=== PATIENT | male | born 1950 | race Caucasian/White ===

== ENCOUNTER 2017-12-01 13:05 | Inpatient (IN) | payer MEDICARE ==
[2017-12-01 13:27] LABS: #Basophils 0.1 thou/uL (0.0-0.2); #Eosinphils 0.4 thou/uL (0.0-0.7); #Lymphocytes 2.2 thou/uL (1.20-3.40); #Monocytes 0.9 thou/uL (0.11-0.59); %Basophils 0.6 % (0.0-1.0); %Eosinophils 3.2 % (0.0-10.0); %Lymphocytes 17.4 % (21.0-51.0); %Monocytes 7.4 % (0.0-10.0); %Neutrophils 71.4 % (42.0-75.0); Hemoglobin 6.8 g/dL (14.0-18.0); Mean Corpuscular HGB CONC 28.8 g/dL (32.0-36.0); Mean Corpuscular Hemoglobin 16.4 pg (27.0-31.0); Mean Corpuscular Volume 57.1 fl (80.0-94.0); Mean Platelet Volume 7.5 fL (7.4-10.4); Platelet Count 532 thou/uL (130-400); Red Blood Cell (RBC) Count 4.15 mill/uL (4.70-6.10); White Blood Cell (WBC) Count 12.6 thou/uL (4.8-10.8)
[2017-12-01 13:45] LABS: Reflex for Review?? YES
[2017-12-01 13:48] LABS: Anisocytosis MODERATE=16-30 cells (100X) (0-5/hpf); Elliptocytes SLIGHT = 2-5 cells (100X) (0-1/hpf); Hypochromia MODERATE=16-30 cells (100X) (0-5/hpf); MDiff Complete? YES; Microcytosis MODERATE=15-30 cells (100X) (0-5/hpf); Ovalocytes SLIGHT = 2-5 cells (100X) (0-1/hpf); PLT Morphology Comment Appears Increased; Poikilocytosis SLIGHT = 6-15 cells (100X) (0-5/hpf); Polychromasia SLIGHT = 2-3 cells (100X) (0-2/hpf); Schistocytes SLIGHT = 2-5 cells (100X) (0-1/hpf); Spherocytes SLIGHT = 1-5 cells (100X) (None Seen); Target Cells SLIGHT = 2-5 cells (100X) (0-1/hpf)
[2017-12-01 13:57] LABS: PTT 28.8 SEC (22.9-36.1); Prothrombin Time 13.2 SEC (12.0-14.7)
--- NOTE | 2017-12-01 14:24 | CT ---
CT BRAIN WITHOUT CONTRAST: Date: 12/01/17 HISTORY: Right-sided blindness, weakness, and dizziness. FINDINGS: No evidence of acute infarct, hemorrhage, midline shift, or abnormal extra-axial fluid collections ar e seen. The ventricular size is appropriate and the basilar cisterns are patent. The bony calvarium i s intact. The visualized paranasal sinuses and mastoid air cells are well aerated. IMPRESSION: No CT evidence of acute intracranial process. POS: [facility]
[2017-12-01 14:29] LABS: Albumin 4.4 g/dL (3.4-4.8)
[2017-12-01 14:30] LABS: Chloride 104 mmol/L (98-107); Potassium 3.9 mmol/L (3.5-5.1); Sodium 136 mmol/L (136-145)
[2017-12-01 14:31] LABS: Calcium 9.1 mg/dL (7.8-10.44); Glucose 85 mg/dL (80-115)
[2017-12-01 14:32] LABS: Globulin 3.8 g/dL (2.4-3.5); Protein, Total 8.2 g/dL (5.8-8.1)
[2017-12-01 14:33] LABS: Anion Gap 12 mmol/L (10-20); Bilirubin, Total 0.6 mg/dL (0.2-1.2); Carbon Dioxide 24 mmol/L (23-31)
[2017-12-01 14:34] LABS: Alkaline Phosphatase 81 U/L (40-150)
[2017-12-01 14:35] LABS: Calc. Creatinine Clearance 0 mL/min (70-130); Estimated GFR-MDRD 46
[2017-12-01 14:36] LABS: BUN (Urea Nitrogen) 26 mg/dL (8.4-25.7)
[2017-12-01 14:37] LABS: ALT (SGPT) Less than 7 U/L (8-55); AST (SGOT) 17 U/L (5-34)
[2017-12-01] MEDS ORDERED: Acetaminophen 325 MG TAB PO PRN (14:40)
[2017-12-01] MEDS ORDERED: PROPOFOL 200 MG/20 ML VIAL ONE (15:45)
[2017-12-01 16:35] VITALS: BMI 28.5
[2017-12-01] MEDS ORDERED: FLU VACC TS2017-18 (>65YR) 0.5 ML SYRINGE IM ONE (17:00)
[2017-12-01] MEDS: Dextrose 5 %-0.45 % NaCl 1,000 ML IV SCH (17:34)
--- NOTE | 2017-12-01 18:07 | HP ---
PRIMARY CARE PHYSICIAN: [facility]. PRESENTING COMPLAINT: Dyspnea on exertion. HISTORY OF PRESENT ILLNESS: Mr. 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 He complains of dyspnea on exertion over the past 3 weeks with weakness and occasional dizziness. He denies abdominal pain, melena, hematochezia. He has no history of fevers or chills. He has no abdominal, urinary, or GI symptoms. At the emerg ency room, his vital signs were stable. Physical examination was unremarkable. Lab revealed hemoglo bin of 6.8 with possible hemoccult blood. He also had a brain CT scan which showed no CT evidence of acute intracranial process. He was then admitted for possible GI bleed. PAST MEDICAL HISTORY: As stated in the HPI. PAST SURGICAL HISTORY: None. FAMILY AND SOCIAL HISTORY: Reviewed, not pertinent. ALLERGIES: None. REVIEW OF SYSTEMS: Ten-point review of systems was done, all negative except as stated in the HPI. SOCIAL HISTORY: Does not drink alcohol or use illicit drugs. Reports that he dips occasionally. PHYSICAL EXAMINATION: VITAL SIGNS: Temperature 98.3 degree Fahrenheit, pulse 69, respiratory rate 16, oxygen saturation 98 % on room air, blood pressure 136/72. GENERAL: Not in acute distress, sitting comfortably in bed. HEENT: Normocephalic, atraumatic. Not pale, anicteric. Moist oral mucosa. NECK: Supple. No JVD. Full range of movement. RESPIRATORY: Vesicular breath sounds bilaterally. No wheezes or rales. CARDIOVASCULAR: S1 and S2 only. No murmurs, rubs, or gallops. ABDOMEN: Soft, not tender, not distended. Bowel sounds positive. No hepatosplenomegaly. MUSCULOSKELETAL: Full range of movement with no skeletal abnormalities. NEUROLOGIC: Alert and well oriented to time, place, and person. No focal deficit. SKIN: Warm, dry, well-perfused. No rashes or lesions. LABORATORY DATA: Pertinent labs, hemoglobin 6.8, WBC 12.6, platelets 532. BUN 26, creatinine 1.52. ASSESSMENT AND PLAN: 1. Symptomatic anemia. Concern for possible underlying malignancy as patient also has positive hemo ccult blood. He has been made n.p.o., started on IV fluids. He will be transfused with PRBC to hemo globin goal of greater than 7. We will also trend his hemoglobin every 6 hours and obtain GI consult s. 2. Possible gastrointestinal bleed. Hemoccult blood was positive. Plan as above. He has also been started on IV Protonix 40 mg q.12 hours. 3. Acute kidney injury likely from poor p.o. intake. This should resolve with hydration. Monitor r enal function in addition for his symptomatic anemia, we will get an anemia workup.
[2017-12-01 18:38] LABS: Hemoglobin 7.7 g/dL (14.0-18.0)
[2017-12-01] MEDS ORDERED: GoLYTELY 4,000 ml Bottle PO SCH (21:00)
[2017-12-01] MEDS ORDERED: Pantoprazole 40 MG VIAL IVP SCH (21:00)
[2017-12-02] MEDS: Dextrose 5 %-0.45 % NaCl 1,000 ML IV SCH ×4 (00:45→22:23)
[2017-12-02 01:04] LABS: Hemoglobin 7.3 g/dL (14.0-18.0)
--- NOTE | 2017-12-02 01:06 | CON ---
DATE OF CONSULTATION: 12/01/2017 REASON FOR CONSULTATION: Anemia. CONSULTING PHYSICIAN: Dr. Melody Rucker. HISTORY OF PRESENT ILLNESS: Patient is a 67-year-old male with past medical history of CVA with righ t-vision deficit presenting with significant anemia. Patient states that he was in his usual state o f health until approximately 2-3 weeks ago, and he began to notice more increased shortness of breath especially with decreased physical capabilities or endurance before he had to stop and rest. This w as also accompanied with mild dizziness that was very self-limiting and usually resolving within [place] after onset. He was subsequently seen by his PCP who mag routine labs, who noted to have a sign ificant anemia on his CBC. At which point, the PCP contacted the patient for evaluation within the E R and urgent evaluation of the significant anemia. Currently, he states that he is doing well withou t any problems or complaints, currently denies any nausea, vomiting, fevers, chills, abdominal pain, hematochezia, hematemesis, melena, or overt bleeding of any kind. REVIEW OF SYSTEMS: A 10-category review of systems was obtained with all responses negative except f or the pertinent positives as listed in the HPI. PAST MEDICAL HISTORY: As per HPI. PAST SURGICAL HISTORY: None. FAMILY HISTORY: Denies any GI malignancies. SOCIAL HISTORY: Denies any alcohol or illicit drug use; however, he does use chewing tobacco on almo st daily basis. OUTPATIENT MEDICATIONS: Reviewed. ALLERGIES: None. PHYSICAL EXAMINATION: Vital signs with a temperature of 97.9, pulse 71, blood pressure 132/71, respi ratory rate 20, satting 100% on room air. LABORATORY DATA: CBC with a white blood cell count of 12.6, hemoglobin 6.8, hematocrit 23.7, platele ts 532. Chemistry with a sodium of 136, potassium 3.9, chloride 104, CO2 of 24, BUN 26, creatinine 1 .52, glucose 85. AST 17, ALT less than 7, alkaline phosphatase 81, total bilirubin 0.6. INR of 1.0. Review of the CBC revealed an MCV of 57 and an RDW of 20. IMAGING DATA: CT brain obtained during this admission showed no acute intracranial process or hemorr jaspreet. ASSESSMENT AND PLAN: The patient is a 67-year-old male with past medical history of cerebrovascular accident with right-vision deficit, presenting with symptomatic anemia. Symptomatic anemia. Patient presenting with progressive onset of shortness of breath primarily with exertion over the last 2-3 weeks as well as mild dizziness, which could be markers of his significant anemia. When evaluated by the PCP, it was noted to have this anemia, there was further confirmed on laboratory studies obtained during this admission. At this point in time, there is no clear etiolog y for the origin of his anemia with no GI complaints of overt blood loss; however, an occult GI bleed ing source cannot be ruled out at this time. He has never had either an upper or lower endoscopy, so malignancy is definitely within the differential. He also endorsed taking baby aspirin daily as nee ded use of ibuprofen, which could potentially generate peptic ulcer disease and subsequent anemia fro m that source as well. RECOMMENDATIONS: 1. We would continue to trend H&H and transfuse as necessary to maintain an H&H of 7/. 2. Continue to monitor clinically for signs of overt gastrointestinal bleeding. 3. We will plan for both EGD and colonoscopy tomorrow for possible occult gastrointestinal bleed. 4. We will order GoLYTELY prep and anticipation for the colonoscopy tomorrow. Please make the patie nt n.p.o. at midnight for procedures in the morning. We will continue to follow. Please call with any questions.
[2017-12-02 06:08] LABS: #Basophils 0.1 thou/uL (0.0-0.2); #Eosinphils 0.5 thou/uL (0.0-0.7); #Lymphocytes 2.1 thou/uL (1.20-3.40); #Monocytes 0.7 thou/uL (0.11-0.59); #Neutrophils 5.2 thou/uL (1.40-6.50); %Basophils 0.6 % (0.0-1.0); %Eosinophils 5.4 % (0.0-10.0); %Lymphocytes 24.7 % (21.0-51.0); %Monocytes 8.3 % (0.0-10.0); Hemoglobin 6.8 g/dL (14.0-18.0); Mean Corpuscular HGB CONC 27.9 g/dL (32.0-36.0); Mean Corpuscular Hemoglobin 16.7 pg (27.0-31.0); Mean Platelet Volume 6.6 fL (7.4-10.4); Platelet Count 387 thou/uL (130-400); Red Blood Cell (RBC) Count 4.06 mill/uL (4.70-6.10); White Blood Cell (WBC) Count 8.6 thou/uL (4.8-10.8)
[2017-12-02 06:14] LABS: Anion Gap 13 mmol/L (10-20); BUN (Urea Nitrogen) 18 mg/dL (8.4-25.7); Calc. Creatinine Clearance 72 mL/min (70-130); Calcium 8.4 mg/dL (7.8-10.44); Carbon Dioxide 23 mmol/L (23-31); Chloride 106 mmol/L (98-107); Estimated GFR-MDRD 54; Glucose 115 mg/dL (80-115); Iron 10 ug/dL (65-175); Iron Binding Capacity, Total 461 mcg/dL (261-462); Potassium 3.9 mmol/L (3.5-5.1); Sodium 138 mmol/L (136-145)
[2017-12-02 06:40] LABS: Ferritin 4.25 ng/mL (22-322)
[2017-12-02 06:45] LABS: Folate (Folic Acid) 5.5 ng/mL (7.0-31.4)
--- NOTE | 2017-12-02 11:02 | PDOC.PN ---
- Subjective Encounter Start Date: 12/02/17 Encounter Start Time: 11:01 Subjective: malaise/fatigue - Objective Resuscitation Status: Resuscitation Status FULL:Full Resuscitation MAR Reviewed: Yes Vital Signs & Weight: Vital Signs (12 hours) Temp Pulse Resp BP Pulse Ox 12/02/17 03:52 98.1 F 78 20 108/56 L 100 12/01/17 23:59 98.0 F 85 20 129/73 100 Result Diagrams: 12/02/17 05:34 12/02/17 05:34 Phys Exam - Physical Examination Neck: no JVD Respiratory: clear to auscultation bilateral Cardiovascular: RRR, no significant murmur Gastrointestinal: soft, no distention, positive bowel sounds Musculoskeletal: no edema Dx/Plan (1) Dizziness Code(s): R42 - DIZZINESS AND GIDDINESS Status: Acute (2) SAMPSON (iron deficiency anemia) Code(s): D50.9 - IRON DEFICIENCY ANEMIA, UNSPECIFIED Status: Acute (3) GI bleeding Code(s): K92.2 - GASTROINTESTINAL HEMORRHAGE, UNSPECIFIED Status: Acute Qualifiers: Gastritis type: unspecified gastritis (4) CKD (chronic kidney disease) stage 3, GFR 30-59 ml/min Code(s): N18.3 - CHRONIC KIDNEY DISEASE, STAGE 3 (MODERATE) Status: Chronic - Plan start PPI -: transfuse 1 unitPRBC -: endoscopy today -: FU post endoscopy * .
[2017-12-02] MEDS ORDERED: Ondansetron HCl/PF 4 MG/2 ML Vial IVP PRN (14:25)
--- NOTE | 2017-12-02 15:30 | OP ---
DATE OF PROCEDURE: 12/02/2017 PROCEDURES: Esophagogastroduodenoscopy with biopsy, colonoscopy (diagnostic). INDICATIONS: Iron deficiency anemia. DESCRIPTION OF PROCEDURE: After the risks and benefits of the procedure were explained to the patien t including risks of infection, bleeding, perforation, reaction to anesthesia and/or pain, informed c onsent was obtained. The patient was then taken to the endoscopy suite where deep sedation was admin istered via anesthesia support. The standard gastroscope was introduced into the mouth with intubati on of the esophagus, stomach and proximal small intestine with the findings listed below. The patien t tolerated the procedure well with no immediate perioperative complications. FINDINGS: ESOPHAGUS: Normal appearing mucosa was seen in the proximal, mid and distal esophagus. The diaphrag matic pinch was seen at approximately 40 cm while the GE junction was well seen at approximately 37-3 6 cm past the incisors denoting a 3-4 cm hiatal hernia. There was no evidence of esophagitis, ulcera tions, or mass lesions. STOMACH: The anatomy of the stomach was somewhat distorted with the antrum located in a left lateral position as opposed to the normal right lateral position. Otherwise, the mucosa seen within the car cassandra, fundus, and body. Incisura appeared normal; however, upon intubation of the gastric antrum, the re was noted to be 3-4 small clean based ulcerations without any high risk stigmata of bleeding. Bio psies were taken of these ulcerations as well as random gastric biopsies to determine possible H. pyl kay status. DUODENUM: Normal appearing mucosa was seen in both the duodenal bulb and second portion of the duode num with no evidence of erosions, ulcerations, or mass lesions. IMPRESSION: 1. One 3-4 small clean based antral ulcerations without any evidence of active/recent bleeding (unli josey to be the source of the patient's anemia). 2. Distorted gastric anatomy concerning for possible paraesophageal hernia. 3. A 3 cm hiatal hernia. 4. No etiology for the patient's anemia was seen during this examination. COLONOSCOPY: DESCRIPTION OF PROCEDURE: After the risks and benefits of the procedure were explained to the patien t including risks of infection, bleeding, perforation, reaction to anesthesia and/or pain, informed c onsent was obtained. The standard colonoscope was then introduced into the rectum and advanced all t he way to the terminal ileum without difficulty. The quality of the prep was excellent. The patient tolerated the procedure well with no immediate perioperative complications. Digital rectal exam normal. COLONIC FINDINGS: Normal appearing mucosa was seen in the terminal ileum, cecum, appendiceal orifice and ileocecal valve. Normal appearing mucosa was seen in the ascending, transverse, descending, sig moid colon, and rectum. On retroflexion, there were small hypertrophied anal papillae as well as sma ll internal hemorrhoids. IMPRESSION: 1. Hypertrophied anal papillae and small internal hemorrhoids. 2. Otherwise, normal colonoscopy. 3. No etiology for his anemia was seen during this examination. RECOMMENDATIONS: 1. We will follow up on biopsy results for determination of H. pylori status and etiology of the c erations. 2. Given the iron deficiency anemia noted on labs, would recommend capsule endoscopy to be performed as an outpatient upon discharge. 3. Would continue to trend hemoglobin and hematocrit and transfuse as necessary to maintain hemoglob in and hematocrit of 7/21. 4. Would continue to monitor clinically for signs of overt gastrointestinal bleeding. 5. Would consider non-GI sources of anemia at this time. 6. Would obtain a barium swallow for further delineation of the patient's gastric anatomy. We will continue to follow. Please call with any questions.
--- NOTE | 2017-12-02 16:01 | PDOC.EVN ---
Event Note - Event Note Event Note: endoscopy unrevealing for bleeding site. GI rec UGI for anatomical definition, ordered. Hematology referral
[2017-12-02] MEDS: Ferrous Gluconate 324 MG TAB PO SCH (17:03)
[2017-12-03 05:22] LABS: #Eosinphils 0.5 thou/uL (0.0-0.7); #Lymphocytes 1.5 thou/uL (1.20-3.40); #Monocytes 0.5 thou/uL (0.11-0.59); #Neutrophils 4.8 thou/uL (1.40-6.50); %Basophils 0.4 % (0.0-1.0); %Eosinophils 6.5 % (0.0-10.0); %Lymphocytes 19.9 % (21.0-51.0); %Monocytes 6.7 % (0.0-10.0); %Neutrophils 66.5 % (42.0-75.0); Hemoglobin 7.4 g/dL (14.0-18.0); Mean Corpuscular HGB CONC 29.9 g/dL (32.0-36.0); Mean Corpuscular Hemoglobin 18.9 pg (27.0-31.0); Mean Corpuscular Volume 63.4 fl (80.0-94.0); Mean Platelet Volume 6.9 fL (7.4-10.4); Platelet Count 303 thou/uL (130-400); Red Blood Cell (RBC) Count 3.92 mill/uL (4.70-6.10); White Blood Cell (WBC) Count 7.3 thou/uL (4.8-10.8)
[2017-12-03 05:24] LABS: Anion Gap 10 mmol/L (10-20); BUN (Urea Nitrogen) 11 mg/dL (8.4-25.7); Calc. Creatinine Clearance 74 mL/min (70-130); Calcium 8.2 mg/dL (7.8-10.44); Carbon Dioxide 24 mmol/L (23-31); Chloride 109 mmol/L (98-107); Estimated GFR-MDRD 56; Glucose 106 mg/dL (80-115); Potassium 3.6 mmol/L (3.5-5.1); Sodium 139 mmol/L (136-145)
[2017-12-03] MEDS ORDERED: Loperamide HCl 2 MG CAP PO PRN (07:03)
[2017-12-03] MEDS ORDERED: Sodium Chloride 0.65% Nasal 44 ML BOT EA NARE PRN (07:03)
[2017-12-03] MEDS ORDERED: Diabetic Tussin 200 MG/10 ML UDCUP PO PRN (07:03)
[2017-12-03] MEDS ORDERED: Milk Of Magnesia 30 ML UDCUP PO PRN (07:03)
[2017-12-03] MEDS ORDERED: Chloraseptic Spray 180 ml Bottle PO PRN (07:03)
[2017-12-03] MEDS ORDERED: Senokot 8.6 MG TAB PO PRN (07:03)
[2017-12-03] MEDS ORDERED: Loratadine 10 MG TAB PO PRN (07:03)
[2017-12-03] MEDS ORDERED: Artificial Tears 18 DROP/0.9 ML EA EYE PRN (07:03)
[2017-12-03] MEDS ORDERED: Temazepam 15 MG CAP PO PRN (07:03)
[2017-12-03] MEDS ORDERED: hydrALAZINE 20 MG/ML VIAL SLOW IVP PRN (07:03)
[2017-12-03] MEDS ORDERED: Ondansetron HCl/PF 4 MG/2 ML Vial IVP PRN (07:03)
[2017-12-03] MEDS ORDERED: Ondansetron ODT 4 MG TAB PO PRN (07:03)
[2017-12-03] MEDS ORDERED: Eucerin (Mineral Oil/Petrolatum,White) 30 gm Jar TOP PRN (07:03)
[2017-12-03] MEDS ORDERED: Mag-Al 1200 mg/1200 mg/30 ML UDCUP PO PRN (07:03)
[2017-12-03] MEDS: Folic Acid 1 MG TAB PO SCH (08:14)
[2017-12-03] MEDS: Ferrous Gluconate 324 MG TAB PO SCH ×3 (08:14→17:52)
[2017-12-03] MEDS: Dextrose 5 %-0.45 % NaCl 1,000 ML IV SCH (08:20)
--- NOTE | 2017-12-03 10:01 | PDOC.PN ---
- Subjective Encounter Start Date: 12/03/17 Encounter Start Time: 07:20 Patient seen and examined. No new complaints. No overnight events - Objective Resuscitation Status: Resuscitation Status FULL:Full Resuscitation MAR Reviewed: Yes Vital Signs & Weight: Vital Signs (12 hours) Temp Pulse Resp BP BP Pulse Ox 12/03/17 07:10 98.2 F 63 16 120/68 98 12/03/17 04:00 98.2 F 70 20 111/64 97 12/03/17 00:00 98.8 F 84 20 115/67 95 I&O: 12/02/17 12/03/17 12/04/17 06:59 06:59 06:59 Intake Total 1540 Balance 1540 Result Diagrams: 12/03/17 04:55 12/03/17 04:55 Phys Exam - Physical Examination Constitutional: NAD HEENT: PERRLA, moist MMs, sclera anicteric Neck: no JVD, supple Respiratory: no wheezing, no rales, no rhonchi Cardiovascular: RRR, no significant murmur, no rub Gastrointestinal: soft, non-tender, no distention, positive bowel sounds Musculoskeletal: no edema, pulses present Neurological: non-focal, normal sensation, moves all 4 limbs Psychiatric: normal affect, A&O x 3 Skin: no rash, normal turgor Dx/Plan (1) Acute kidney failure Status: Acute (2) Acute ulcer of pyloric antrum Code(s): K25.3 - ACUTE GASTRIC ULCER WITHOUT HEMORRHAGE OR PERFORATION Status : Acute (3) Dizziness Code(s): R42 - DIZZINESS AND GIDDINESS Status: Acute (4) Folate deficiency Code(s): E53.8 - DEFICIENCY OF OTHER SPECIFIED B GROUP VITAMINS Status: Acute (5) Guaiac positive stools Status: Acute (6) Hiatal hernia Code(s): K44.9 - DIAPHRAGMATIC HERNIA WITHOUT OBSTRUCTION OR GANGRENE Status: Acute (7) SAMPSON (iron deficiency anemia) Code(s): D50.9 - IRON DEFICIENCY ANEMIA, UNSPECIFIED Status: Acute (8) Symptomatic anemia Code(s): D64.9 - ANEMIA, UNSPECIFIED Status: Acute - Plan cont current plan of care * will give venofer one dose * repeat labs tomorrow * expecting discharge tomorrow * medication reviewed as below * symptomatic treatment. Review of Systems - Review of Systems Eyes: negative: Pain, Vision Change, Conjunctivae Inflammation, Eyelid Inflammation, Redness, Other ENT: negative: Ear Pain, Ear Discharge, Nose Pain, Nose Discharge, Nose Congestion, Mouth Pain, Mouth Swelling, Throat Pain, Throat Swelling, Other Respiratory: negative: Cough, Dry, Shortness of Breath, Hemoptysis, SOB with Excertion, Pleuritic Pain, Sputum, Wheezing Cardiovascular: negative: chest pain, palpitations, orthopnea, paroxysmal nocturnal dyspnea, edema, light headedness, other Gastrointestinal: negative: Nausea, Vomiting, Abdominal Pain, Diarrhea, Constipation, Melena, Hematochezia, Other Genitourinary: negative: Dysuria, Frequency, Incontinence, Hematuria, Retention , Other Musculoskeletal: negative: Neck Pain, Shoulder Pain, Arm Pain, Back Pain, Hand Pain, Leg Pain, Foot Pain, Other Skin: negative: Rash, Lesions, Max, Bruising, Other - Medications/Allergies Allergies/Adverse Reactions: Allergies Allergy/AdvReac Type Severity Reaction Status Date / Time No Known Allergies Allergy Unverified 12/01/17 16:14 Medications: Current Medications Acetaminophen (Tylenol) 650 mg PO Q4H PRN PRN Reason: Headache/Fever or Pain Al Hydroxide/Mg Hydroxide (Maalox) 15 ml PO Q4H PRN PRN Reason: Heartburn or Indigestion Artificial Tears (Tears Naturale) 0 drop EA EYE PRN PRN PRN Reason: Dry Eyes Ferrous Gluconate (Fergon) 324 mg PO TID-[facility] Last Admin: 12/03/17 08:14 Dose: 324 mg Folic Acid (Folvite) 1 mg PO DAILY [facility] Last Admin: 12/03/17 08:14 Dose: 1 mg Guaifenesin (Robitussin Sf) 200 mg PO Q4H PRN PRN Reason: Cough Hydralazine HCl (Apresoline) 10 mg SLOW IVP Q4H PRN PRN Reason: Systolic BP > 180 Iron Sucrose 200 mg/ Sodium (Chloride) 260 mls @ 125 mls/hr IVPB ONE [facility] Loperamide HCl (Imodium) 2 mg PO PRN PRN PRN Reason: Diarrhea/Loose Stools Loratadine (Claritin) 10 mg PO DAILYPRN PRN PRN Reason: Sinus Symptoms Magnesium Hydroxide (Milk Of Magnesium) 30 ml PO DAILYPRN PRN PRN Reason: Constipation Mineral Oil/White Petrolatum (Eucerin Cream) 0 gm TOP BIDPRN PRN PRN Reason: Dry Skin Ondansetron HCl (Zofran Odt) 4 mg PO Q6H PRN PRN Reason: Nausea/Vomiting Ondansetron HCl (Zofran) 4 mg IVP Q6H PRN PRN Reason: Nausea/Vomiting Pantoprazole Sodium (Protonix) 40 mg PO DAILY [facility] Last Admin: 12/03/17 08:15 Dose: 40 mg Phenol (Chloraseptic [place] 180 Ml Bot) 0 ml PO PRN PRN PRN Reason: Sore Throat Senna (Senokot) 2 tab PO HSPRN PRN PRN Reason: Constipation Sodium Chloride ([place] Nasal [place] 0.65%) 0 ml EA NARE QIDPRN PRN PRN Reason: Nasal Congestion Temazepam (Restoril) 15 mg PO HSPRN PRN PRN Reason: Insomnia
[2017-12-03] MEDS ORDERED: Iron Sucrose Complex 200 MG in Sodium Chloride 0.9% 250 ML 250 ML IVPB SCH (11:00)
--- NOTE | 2017-12-03 22:01 | PRG ---
DATE OF SERVICE: 12/03/2017 REASON FOR CONSULTATION: Anemia. SUBJECTIVE: The patient did well overnight with no acute or events. Currently, denies any nausea, v omiting, fevers, chills, abdominal pain, dysphagia, odynophagia, or GI bleeding. In actuality, he st ates that this is the best he has felt in many years. OBJECTIVE: VITAL SIGNS: Temperature 98.7, pulse 96, blood pressure 131/73, respiratory rate 20, satting 95% on room air. GENERAL: The patient lying in bed in no acute distress. Alert and oriented x4. CARDIOVASCULAR: Regular rate and rhythm with no discernible murmurs, gallops, or rubs. RESPIRATORY: Clear to auscultation bilaterally with no discernible wheezes or rales. ABDOMEN: Normoactive bowel sounds, soft, nontender, nondistended. EXTREMITIES: No cyanosis, clubbing, or edema. LABORATORY DATA: CBC with a white blood cell count 7.3, hemoglobin 7.4, hematocrit 24.8, platelets 3 03. Chemistry: Sodium 139, potassium 3.6, chloride 109, CO2 of 24, BUN 11, creatinine 1.28. Platel ets 106. Vitamin B12 447, folate low at 5.5. ASSESSMENT: The patient is a 67-year-old male with past medical history of cerebrovascular accident with a right vision deficit, presenting with symptomatic anemia. Symptomatic anemia. The patient initially presented with a progressive onset of shortness of breath with exertion over the last 2-3 weeks along with significant anemia noted on admission with routine l abs. He underwent EGD and colonoscopy on 12/02/2017 with no etiology for anemia seen during those ex aminations; however, during the study, there was a possible paraesophageal hernia, which could potent ially generate anemia, but very unlikely to do so. At this time given his significantly low MCV and high RDW, it is consistent with an iron deficiency anemia and may be amenable to capsule endoscopy ev aluation as an outpatient. RECOMMENDATIONS: 1. Would continue to trend H and H, and transfuse as necessary to maintain an H and H of 7/21. 2. Continue to monitor clinically for signs of overt gastrointestinal bleeding. 3. Would consider non-GI sources of anemia. 4. From a GI standpoint, the patient can be discharged to home with follow up in the GI clinic withi n 2 weeks for reevaluation of anemia and possibly capsule endoscopy at that time. 5. Would start patient on folate supplementation given his low serum folate and possible contributio n to anemia secondary to poor diet. We will sign off at this time. Please call with any additional questions.
[2017-12-04 05:29] LABS: Anion Gap 11 mmol/L (10-20); BUN (Urea Nitrogen) 9 mg/dL (8.4-25.7); Calc. Creatinine Clearance 81 mL/min (70-130); Calcium 8.2 mg/dL (7.8-10.44); Carbon Dioxide 21 mmol/L (23-31); Chloride 110 mmol/L (98-107); Estimated GFR-MDRD 63; Glucose 86 mg/dL (80-115); Potassium 3.8 mmol/L (3.5-5.1); Sodium 138 mmol/L (136-145)
[2017-12-04 05:34] LABS: #Eosinphils 0.5 thou/uL (0.0-0.7); #Lymphocytes 1.5 thou/uL (1.20-3.40); #Monocytes 0.7 thou/uL (0.11-0.59); #Neutrophils 5.9 thou/uL (1.40-6.50); %Basophils 0.4 % (0.0-1.0); %Eosinophils 5.8 % (0.0-10.0); %Lymphocytes 17.4 % (21.0-51.0); %Monocytes 7.9 % (0.0-10.0); %Neutrophils 68.6 % (42.0-75.0); Hemoglobin 7.4 g/dL (14.0-18.0); Mean Corpuscular HGB CONC 29.1 g/dL (32.0-36.0); Mean Corpuscular Hemoglobin 18.8 pg (27.0-31.0); Mean Corpuscular Volume 64.5 fl (80.0-94.0); Mean Platelet Volume 6.8 fL (7.4-10.4); Platelet Count 293 thou/uL (130-400); Red Blood Cell (RBC) Count 3.92 mill/uL (4.70-6.10); White Blood Cell (WBC) Count 8.7 thou/uL (4.8-10.8)
[2017-12-04] MEDS: Ferrous Gluconate 324 MG TAB PO SCH (09:17)
[2017-12-04] MEDS: Folic Acid 1 MG TAB PO SCH (09:18)
--- NOTE | 2017-12-04 10:29 | PDOC.PN ---
- Subjective Encounter Start Date: 12/04/17 Encounter Start Time: 08:40 Patient seen and examined. No new complaints. No overnight events - Objective Resuscitation Status: Resuscitation Status FULL:Full Resuscitation MAR Reviewed: Yes Vital Signs & Weight: Vital Signs (12 hours) Temp Pulse Resp BP Pulse Ox 12/04/17 08:00 98.0 F 73 18 119/67 96 12/04/17 04:00 98.3 F 76 20 120/72 93 L 12/04/17 00:00 98.9 F 74 20 129/64 96 I&O: 12/03/17 12/04/17 12/05/17 06:59 06:59 06:59 Intake Total 1540 2220 Output Total 1999 Balance 1540 220 Result Diagrams: 12/04/17 04:51 12/04/17 04:51 Radiology Reviewed by me: Yes (ba swallow) Phys Exam - Physical Examination Constitutional: NAD HEENT: PERRLA, moist MMs, sclera anicteric Neck: no JVD, supple Respiratory: no wheezing, no rales, no rhonchi Cardiovascular: RRR, no significant murmur, no rub Gastrointestinal: soft, non-tender, no distention, positive bowel sounds Musculoskeletal: no edema, pulses present Neurological: non-focal, normal sensation, moves all 4 limbs Psychiatric: normal affect, A&O x 3 Skin: no rash, normal turgor Dx/Plan (1) Acute kidney failure Status: Acute (2) Acute ulcer of pyloric antrum Code(s): K25.3 - ACUTE GASTRIC ULCER WITHOUT HEMORRHAGE OR PERFORATION Status : Acute (3) Dizziness Code(s): R42 - DIZZINESS AND GIDDINESS Status: Acute (4) Folate deficiency Code(s): E53.8 - DEFICIENCY OF OTHER SPECIFIED B GROUP VITAMINS Status: Acute (5) Guaiac positive stools Status: Acute (6) Hiatal hernia Code(s): K44.9 - DIAPHRAGMATIC HERNIA WITHOUT OBSTRUCTION OR GANGRENE Status: Acute (7) SAMPSON (iron deficiency anemia) Code(s): D50.9 - IRON DEFICIENCY ANEMIA, UNSPECIFIED Status: Acute (8) Symptomatic anemia Code(s): D64.9 - ANEMIA, UNSPECIFIED Status: Acute - Plan cont current plan of care * today barium swallow, if normal will consider discharge * medication reviewed as below * symptomatic treatment. Review of Systems - Review of Systems Eyes: negative: Pain, Vision Change, Conjunctivae Inflammation, Eyelid Inflammation, Redness, Other ENT: negative: Ear Pain, Ear Discharge, Nose Pain, Nose Discharge, Nose Congestion, Mouth Pain, Mouth Swelling, Throat Pain, Throat Swelling, Other Respiratory: negative: Cough, Dry, Shortness of Breath, Hemoptysis, SOB with Excertion, Pleuritic Pain, Sputum, Wheezing Cardiovascular: negative: chest pain, palpitations, orthopnea, paroxysmal nocturnal dyspnea, edema, light headedness, other Gastrointestinal: negative: Nausea, Vomiting, Abdominal Pain, Diarrhea, Constipation, Melena, Hematochezia, Other Genitourinary: negative: Dysuria, Frequency, Incontinence, Hematuria, Retention , Other Musculoskeletal: negative: Neck Pain, Shoulder Pain, Arm Pain, Back Pain, Hand Pain, Leg Pain, Foot Pain, Other Skin: negative: Rash, Lesions, Max, Bruising, Other - Medications/Allergies Allergies/Adverse Reactions: Allergies Allergy/AdvReac Type Severity Reaction Status Date / Time No Known Allergies Allergy Unverified 12/01/17 16:14 Medications: Current Medications Acetaminophen (Tylenol) 650 mg PO Q4H PRN PRN Reason: Headache/Fever or Pain Al Hydroxide/Mg Hydroxide (Maalox) 15 ml PO Q4H PRN PRN Reason: Heartburn or Indigestion Artificial Tears (Tears Naturale) 0 drop EA EYE PRN PRN PRN Reason: Dry Eyes Ferrous Gluconate (Fergon) 324 mg PO TID-[facility] Last Admin: 12/04/17 09:17 Dose: 324 mg Folic Acid (Folvite) 1 mg PO DAILY [facility] Last Admin: 12/04/17 09:18 Dose: 1 mg Guaifenesin (Robitussin Sf) 200 mg PO Q4H PRN PRN Reason: Cough Hydralazine HCl (Apresoline) 10 mg SLOW IVP Q4H PRN PRN Reason: Systolic BP > 180 Loperamide HCl (Imodium) 2 mg PO PRN PRN PRN Reason: Diarrhea/Loose Stools Loratadine (Claritin) 10 mg PO DAILYPRN PRN PRN Reason: Sinus Symptoms Magnesium Hydroxide (Milk Of Magnesium) 30 ml PO DAILYPRN PRN PRN Reason: Constipation Mineral Oil/White Petrolatum (Eucerin Cream) 0 gm TOP BIDPRN PRN PRN Reason: Dry Skin Ondansetron HCl (Zofran Odt) 4 mg PO Q6H PRN PRN Reason: Nausea/Vomiting Ondansetron HCl (Zofran) 4 mg IVP Q6H PRN PRN Reason: Nausea/Vomiting Pantoprazole Sodium (Protonix) 40 mg PO DAILY [facility] Last Admin: 12/04/17 09:18 Dose: 40 mg Phenol (Chloraseptic [place] 180 Ml Bot) 0 ml PO PRN PRN PRN Reason: Sore Throat Senna (Senokot) 2 tab PO HSPRN PRN PRN Reason: Constipation Sodium Chloride ([place] Nasal [place] 0.65%) 0 ml EA NARE QIDPRN PRN PRN Reason: Nasal Congestion Temazepam (Restoril) 15 mg PO HSPRN PRN PRN Reason: Insomnia
--- NOTE | 2017-12-04 10:31 | RAD ---
BARIUM SWALLOW ESOPHAGRAM: Date: 12/04/17 HISTORY: Paraesophageal hernia. COMPARISON: None. FINDINGS: On the psychology instructor radiograph, there is a large hiatal hernia. The patient was given gas-forming crystals. The patient tolerated this wall. There is a large sliding hiatal hernia with organoaxial volvulus, ch ronic. There is no significant reflux of contrast. There is a diverticulum in the second portion of t he duodenum. There is normal primary and secondary peristalsis. No extrinsic mass effect. Next, the p atient was given a barium tablet. The patient tolerated this well and it passed quickly. Next, the pa tient was put in the PERKINS position. The patient tolerated this well. The patient was given thin liquid barium to continuously drink. Again, primary and secondary peristalsis was noted. IMPRESSION: 1. Large sliding hiatal hernia with chronic organoaxial volvulus. This does not cause restriction of contrast extension into the abdomen. No evidence of obstruction. 2. Normal primary and secondary peristalsis. 3. No significant reflux. 4. Second portion of duodenum diverticulum. POS: [facility]
--- NOTE | 2017-12-04 11:11 | DIS ---
DATE OF ADMISSION: 12/01/2017 DATE OF DISCHARGE: 12/04/2017 PRIMARY CARE PHYSICIAN: [facility] call admission. DISCHARGE DISPOSITION: Home. PRIMARY DISCHARGE DIAGNOSES: Acute kidney failure, symptomatic iron anemia status post 2 unit transf usion, dizziness due to anemia, folate deficiency, pyloric antrum ulcer, large sliding hiatal hernia. SECONDARY DISCHARGE DIAGNOSIS: Gastroesophageal reflux disease. PRIMARY PROCEDURE/OPERATION: Upper endoscopy showed antral ulceration, hiatal hernia. Colonoscopy s howed internal hemorrhoid, otherwise normal. RADIOLOGICAL INVESTIGATION: CT brain, normal. Barium swallow showed large sliding hiatal hernia and duodenal diverticulum. SIGNIFICANT LABORATORY DATA: WBC 8.7, hemoglobin 7.4, platelets 293. INR 1.0. Ferritin 4.25. Sodi um 138, creatinine 1.17, folate 5.50. LFTs normal. Alcohol level less than 10. Stool for guaiac po sitive. DISCHARGE MEDICATIONS: Ferrous gluconate 324 mg p.o. t.i.d., folic acid 1 mg p.o. daily, Protonix 40 mg p.o. daily. CONTRAINDICATIONS: None. CODE STATUS: FULL CODE. INPATIENT SOFTWARE FIRMWARE ENGINEER: Dr. Scarlet Bowers. TEST RESULTS PENDING ON DISCHARGE: Pathology report from stomach. DISCHARGE PLAN: Post hospital, patient will follow up with Dr. Radha Bowers as instructed. HOSPITAL COURSE: A 67-year-old male who was admitted by Dr. Rucker on 12/01/2017. Please see his H&P for further details. This patient was admitted for symptomatic anemia and he was having symptoms of iron deficiency anemia including generalized weakness, fatigue, dyspnea on exertion and dizziness . On admission, his hemoglobin was 6.8 and anemia workup was consistent with iron deficiency anemia with ferritin 4.25. He was given 2 units of blood transfusion. He was also found with folate defici ency during this admission. As per history, the patient's eating pattern was not good prior to arriv al. Patient underwent EGD and colonoscopy and found with antral ulceration on EGD and distorted leatha velvet of the esophagus as well as internal hemorrhoids on colonoscopy. We did barium swallow and that confirmed large sliding hiatal hernia and duodenal diverticulum. On admission, he had acute kidney f ailure that was improved with blood transfusion and IV fluid. We also transfused parenteral iron inf usion while in hospital. We prescribed the above-mentioned medication and dietary instructions given . Patient is seen and examined at bedside today. Please see my progress note from today for further de tails. Patient is medically stable for discharge today and he will follow up with GI after discharge for followup on pathology report.
[2017-12-04 13:12] VITALS: BP 128/70; TEMP 98.2
--- NOTE | 2017-12-16 19:56 | EKG ---
Test Reason : DIZZINESS Blood Pressure : / mmHG Vent. Rate : 079 BPM Atrial Rate : 079 BPM P-R Int : 146 ms QRS Dur : 104 ms QT Int : 386 ms P-R-T Axes : 013 004 017 degrees QTc Int : 442 ms Normal sinus rhythm Normal ECG Confirmed by WILSON JAY ([id number]), digital editor KYA RIVAS ([id number]) on 12/16/2017 7:55:16 PM Referred By: Confirmed By:WILSON JAY
== END 2017-12-04 13:25 | disposition home or self-care (01) | DRG 812 ==
LOC: ERS 13:05 → T4-B 14:38
PROVIDERS: ADMIT Internal Medicine; ATTEND Internal Medicine
PROC: 30233N1 Transfusion of Nonautologous Red Blood Cells into Peripheral Vein, Percutaneous Approach (ICD-10-PCS; principal; 2017-12-01)
PROC: 30233N1 Transfusion of Nonautologous Red Blood Cells into Peripheral Vein, Percutaneous Approach (ICD-10-PCS; 2017-12-02)
PROC: 0DB68ZX Excision of Stomach, Via Natural or Artificial Opening Endoscopic, Diagnostic (ICD-10-PCS; 2017-12-02)
PROC: 0DJD8ZZ Inspection of Lower Intestinal Tract, Via Natural or Artificial Opening Endoscopic (ICD-10-PCS; 2017-12-02)
DX: D50.9 Iron deficiency anemia, unspecified (principal); N17.9 Acute kidney failure, unspecified; K25.3 Acute gastric ulcer without hemorrhage or perforation; K44.9 Diaphragmatic hernia without obstruction or gangrene; E53.8 Deficiency of other specified B group vitamins; K21.9 Gastro-esophageal reflux disease without esophagitis; K64.8 Other hemorrhoids; I69.398 Other sequelae of cerebral infarction; H53.8 Other visual disturbances; N18.3 Chronic kidney disease, stage 3 (moderate); R19.5 Other fecal abnormalities
CPT/HCPCS: 36415; 36430; 70450; 74220; 80048; 80053; 80307; 82274; 82607; 82728; 82746; 83540; 83550; 84443; 85014; 85018; 85025; 85060; 85610; 85730; 86850; 86900; 86901; 88305; 88312; 93005; J1756; J2704; J7050; P9016

== ENCOUNTER 2021-08-09 20:40 | Emergency (ER) | payer OTHER, MEDICARE | END 2021-08-10 00:03 | disposition home or self-care (01) | LOC: ERS 20:40 | DX: S13.4XXA Sprain of ligaments of cervical spine, initial encounter (principal); V43.52XA Car driver injured in collision with other type car in traffic accident, initial encounter; D64.9 Anemia, unspecified; F17.220 Nicotine dependence, chewing tobacco, uncomplicated | CPT/HCPCS: 70450; 71045; 72125 ==

== ENCOUNTER 2021-08-20 21:18 | Inpatient (IN) | payer MEDICARE ==
[~2021-08-20 21:18] MED LIST: Iopamidol-370 76% 500 ML 1 ML ONE
[2021-08-20 22:37] LABS: #Basophils 0.1 thou/uL (0.0-0.2); #Eosinphils 0.3 thou/uL (0.0-0.7); #Lymphocytes 1.4 thou/uL (1.20-3.40); #Monocytes 0.9 thou/uL (0.11-0.59); #Neutrophils 8.6 thou/uL (1.40-6.50); %Basophils 0.4 % (0.0-1.0); %Eosinophils 2.6 % (0.0-10.0); %Lymphocytes 12.1 % (21.0-51.0); %Monocytes 8.3 % (0.0-10.0); %Neutrophils 76.6 % (42.0-75.0); Mean Corpuscular HGB CONC 30.7 g/dL (32.0-36.0); Mean Corpuscular Hemoglobin 18.4 pg (27.0-31.0); Mean Platelet Volume 7.6 fL (7.4-10.4); Platelet Count 259 thou/uL (130-400); RBC Distribution Width 16.8 % (11.5-14.5); Red Blood Cell (RBC) Count 3.23 mill/uL (4.70-6.10); Reflex for Review?? NO; White Blood Cell (WBC) Count 11.3 thou/uL (4.8-10.8)
[2021-08-20 22:50] LABS: Bacteria/HPF 4+ HPF (None Seen); Bilirubin Negative (Negative); Blood, Urine Negative (Negative); Clarity Clear (Clear); Glucose, Urine (Dipstick) Normal (Negative); Ketone, Urine Negative (Negative); Leukocyte 250 Leu/uL (Negative); Nitrite 1+ (Negative); Protein, Urine (Dipstick) 20 mg/dL (Neg-Trace); RBC/HPF 0-3 HPF (0-3); Squamous Epithelial None Seen HPF (0-3); Urobilinogen Normal mg/dL (Less than 2); WBC/HPF 21-50 HPF (0-3); pH, Urine 5.5 (5.0-9.0)
[2021-08-20 22:53] LABS: ALT (SGPT) 10 U/L (8-55); AST (SGOT) 14 U/L (5-34); Albumin 4.1 g/dL (3.4-4.8); Alkaline Phosphatase 75 U/L (40-110); Anion Gap 14 mmol/L (10-20); BUN (Urea Nitrogen) 29 mg/dL (8.4-25.7); Bilirubin, Total 0.6 mg/dL (0.2-1.2); Calc. Creatinine Clearance 0 mL/min (70-130); Calcium 9.2 mg/dL (7.8-10.44); Carbon Dioxide 24 mmol/L (23-31); Chloride 103 mmol/L (98-107); Globulin 3.3 g/dL (2.4-3.5); Glucose 158 mg/dL (80-115); Magnesium 1.9 mg/dL (1.6-2.6); Potassium 3.5 mmol/L (3.5-5.1); Protein, Total 7.4 g/dL (5.8-8.1); Sodium 137 mmol/L (136-145)
[2021-08-21 01:45] VITALS: BMI 31.4
[2021-08-21] MEDS ORDERED: Acetaminophen 650 MG Suppository PR PRN (02:06)
[2021-08-21] MEDS ORDERED: Ondansetron ODT 4 MG TAB PO PRN (02:06)
[2021-08-21] MEDS ORDERED: Ondansetron PF 4 MG/2 ML Vial IVP PRN (02:06)
[2021-08-21] MEDS: Acetaminophen 325 MG TAB PO PRN ×2 (02:45→12:17)
[2021-08-21 03:59] LABS: Bacteria/HPF None Seen HPF (None Seen); Bilirubin Negative (Negative); Blood, Urine Negative (Negative); Clarity Clear (Clear); Glucose, Urine (Dipstick) Normal (Negative); Ketone, Urine Negative (Negative); Leukocyte 25 Leu/uL (Negative); Nitrite 2+ (Negative); Protein, Urine (Dipstick) Negative (Neg-Trace); RBC/HPF 0-3 HPF (0-3); Specific Gravity, Urine 1.045 (1.002-1.036); Squamous Epithelial None Seen HPF (0-3); Urobilinogen Normal mg/dL (Less than 2); pH, Urine 5.5 (5.0-9.0)
[2021-08-21 04:16] LABS: Creatinine, Urine 103.61 mg/dL (63-166)
[2021-08-21 05:49] LABS: #Eosinphils 0.2 thou/uL (0.0-0.7); #Lymphocytes 1.3 thou/uL (1.20-3.40); #Monocytes 0.7 thou/uL (0.11-0.59); %Basophils 0.3 % (0.0-1.0); %Eosinophils 2.3 % (0.0-10.0); %Lymphocytes 13.5 % (21.0-51.0); %Monocytes 7.6 % (0.0-10.0); %Neutrophils 76.2 % (42.0-75.0); Hemoglobin 6.1 g/dL (14.0-18.0); Mean Corpuscular HGB CONC 29.5 g/dL (32.0-36.0); Mean Corpuscular Volume 64.5 fL (78.0-98.0); Mean Platelet Volume 7.9 fL (7.4-10.4); Platelet Count 236 thou/uL (130-400); RBC Distribution Width 20.4 % (11.5-14.5); White Blood Cell (WBC) Count 9.2 thou/uL (4.8-10.8)
[2021-08-21 06:08] LABS: Anion Gap 14 mmol/L (10-20); BUN (Urea Nitrogen) 27 mg/dL (8.4-25.7); Calc. Creatinine Clearance 70 mL/min (70-130); Calcium 8.7 mg/dL (7.8-10.44); Carbon Dioxide 19 mmol/L (23-31); Chloride 109 mmol/L (98-107); Glucose 105 mg/dL (80-115); Potassium 3.9 mmol/L (3.5-5.1); Sodium 138 mmol/L (136-145)
[2021-08-21] MEDS: Sodium Bicarbonate Tab 325 MG TAB PO SCH ×2 (14:46→20:28)
[2021-08-21 16:24] LABS: SARS-CoV-2 PCR by NAA Not Detected (NotDetected)
[2021-08-21 16:58] LABS: Iron 17 ug/dL (65-175); Iron Binding Capacity, Total 368 mcg/dL (261-462)
[2021-08-22 05:32] LABS: #Eosinphils 0.3 thou/uL (0.0-0.7); #Monocytes 0.6 thou/uL (0.11-0.59); #Neutrophils 5.2 thou/uL (1.40-6.50); %Basophils 0.4 % (0.0-1.0); %Eosinophils 3.7 % (0.0-10.0); %Lymphocytes 14.7 % (21.0-51.0); %Monocytes 8.4 % (0.0-10.0); %Neutrophils 72.8 % (42.0-75.0); Mean Corpuscular HGB CONC 30.6 g/dL (32.0-36.0); Mean Corpuscular Hemoglobin 20.6 pg (27.0-31.0); Mean Corpuscular Volume 67.2 fL (78.0-98.0); Mean Platelet Volume 6.9 fL (7.4-10.4); Platelet Count 187 thou/uL (130-400); RBC Distribution Width 21.6 % (11.5-14.5); Red Blood Cell (RBC) Count 3.42 mill/uL (4.70-6.10); White Blood Cell (WBC) Count 7.1 thou/uL (4.8-10.8)
[2021-08-22 05:56] LABS: Anion Gap 12 mmol/L (10-20); BUN (Urea Nitrogen) 15 mg/dL (8.4-25.7); Calc. Creatinine Clearance 82 mL/min (70-130); Calcium 8.5 mg/dL (7.8-10.44); Carbon Dioxide 22 mmol/L (23-31); Chloride 109 mmol/L (98-107); Glucose 79 mg/dL (80-115); Potassium 3.8 mmol/L (3.5-5.1); Sodium 139 mmol/L (136-145)
[2021-08-22] MEDS ORDERED: Iron Sucrose Complex 400 MG in Sodium Chloride 0.9% 200 ML IVPB SCH (08:00)
[2021-08-22] MEDS ORDERED: PROPOFOL 200 MG/20 ML VIAL ONE (08:22)
[2021-08-22] MEDS ORDERED: PHENYLEPHRINE-NS 100 MCG/ML 10 ML SYRINGE ONE (08:22)
[2021-08-22] MEDS ORDERED: Lidocaine 1% PF 5 ML VIAL ONE (08:22)
[2021-08-22] MEDS ORDERED: ePHEDrine 50 MG/ML VIAL ONE (08:22)
[2021-08-22] MEDS ORDERED: HYDROmorphone 2 MG/ML VIAL SLOW IVP PRN (08:42)
[2021-08-22] MEDS ORDERED: Promethazine HCl 25 MG/ML VIAL IVPB PRN (08:42)
[2021-08-22] MEDS ORDERED: Ondansetron HCl/PF 4 MG/2 ML Vial IVP PRN (08:42)
[2021-08-22] MEDS ORDERED: Promethazine HCl 25 MG/ML VIAL IM PRN (08:42)
[2021-08-22] MEDS: Sodium Bicarbonate Tab 325 MG TAB PO SCH ×3 (10:36→21:20)
[2021-08-22] MEDS: Iron, Sodium Ferric Gluconate 250 MG in Sodium Chloride 0.9% 100 ML IVPB SCH ×2 (10:36→21:20)
[2021-08-22 10:53] LABS: Hemoglobin 7.5 g/dL (14.0-18.0)
[2021-08-22 16:50] LABS: Hemoglobin 7.2 g/dL (14.0-18.0)
[2021-08-22 22:05] LABS: Hemoglobin 7.1 g/dL (14.0-18.0)
[2021-08-23 05:20] LABS: #Eosinphils 0.2 thou/uL (0.0-0.7); #Lymphocytes 0.9 thou/uL (1.20-3.40); #Monocytes 0.5 thou/uL (0.11-0.59); #Neutrophils 5.3 thou/uL (1.40-6.50); %Basophils 0.4 % (0.0-1.0); %Eosinophils 3.2 % (0.0-10.0); %Lymphocytes 13.3 % (21.0-51.0); %Monocytes 7.7 % (0.0-10.0); %Neutrophils 75.4 % (42.0-75.0); Hemoglobin 6.9 g/dL (14.0-18.0); Mean Corpuscular HGB CONC 30.6 g/dL (32.0-36.0); Mean Corpuscular Hemoglobin 20.5 pg (27.0-31.0); Mean Corpuscular Volume 66.8 fL (78.0-98.0); Mean Platelet Volume 7.9 fL (7.4-10.4); Platelet Count 179 thou/uL (130-400); RBC Distribution Width 22.5 % (11.5-14.5); Red Blood Cell (RBC) Count 3.39 mill/uL (4.70-6.10)
[2021-08-23 05:38] LABS: Albumin 3.2 g/dL (3.4-4.8); Anion Gap 11 mmol/L (10-20); BUN (Urea Nitrogen) 13 mg/dL (8.4-25.7); Calc. Creatinine Clearance 81 mL/min (70-130); Calcium 8.9 mg/dL (7.8-10.44); Carbon Dioxide 24 mmol/L (23-31); Chloride 107 mmol/L (98-107); Glucose 100 mg/dL (80-115); Phosphorus 3.8 mg/dL (2.3-4.7); Potassium 3.7 mmol/L (3.5-5.1); Sodium 138 mmol/L (136-145)
[2021-08-23] MEDS: Sodium Bicarbonate Tab 325 MG TAB PO SCH ×3 (10:50→19:59)
[2021-08-23] MEDS: Iron, Sodium Ferric Gluconate 250 MG in Sodium Chloride 0.9% 250 ML 250 ML IVPB SCH ×2 (14:39→19:59)
[2021-08-23 20:16] LABS: Hemoglobin 8.4 g/dL (14.0-18.0)
[2021-08-23 21:00] VITALS: BP 144/66; TEMP 98.4
[2021-08-24] MEDS ORDERED: FLU VACC QS2021-22(65YR UP)/PF 240 MCG/0.7 ML SYRINGE IM ONE (09:00)
== END 2021-08-23 22:36 | disposition home or self-care (01) | DRG 811 ==
LOC: ERS 21:18 → 2SW 08-21 00:18 → OBSVTOIN 08-23 14:55
PROVIDERS: ADMIT Student in an Organized Health Care Education/Training Program; ATTEND Hospitalist
PROC: 30233N1 Transfusion of Nonautologous Red Blood Cells into Peripheral Vein, Percutaneous Approach (ICD-10-PCS; 2021-08-21)
PROC: 0DB68ZX Excision of Stomach, Via Natural or Artificial Opening Endoscopic, Diagnostic (ICD-10-PCS; principal; 2021-08-22)
PROC: 0DB98ZX Excision of Duodenum, Via Natural or Artificial Opening Endoscopic, Diagnostic (ICD-10-PCS; 2021-08-22)
PROC: 0W3P8ZZ Control Bleeding in Gastrointestinal Tract, Via Natural or Artificial Opening Endoscopic (ICD-10-PCS; 2021-08-22)
DX: D50.0 Iron deficiency anemia secondary to blood loss (chronic) (principal); K26.4 Chronic or unspecified duodenal ulcer with hemorrhage; K25.4 Chronic or unspecified gastric ulcer with hemorrhage; N17.9 Acute kidney failure, unspecified; E87.2 Acidosis; N39.0 Urinary tract infection, site not specified; Z20.822 Contact with and (suspected) exposure to COVID-19; M19.90 Unspecified osteoarthritis, unspecified site; E66.9 Obesity, unspecified; D72.829 Elevated white blood cell count, unspecified; K21.00 Gastro-esophageal reflux disease with esophagitis, without bleeding; N18.9 Chronic kidney disease, unspecified; K44.9 Diaphragmatic hernia without obstruction or gangrene; Z98.890 Other specified postprocedural states; Z68.32 Body mass index [BMI] 32.0-32.9, adult
CPT/HCPCS: 36415; 36430; 71045; 71260; 80048; 80053; 80069; 81001; 81003; 81015; 82570; 82728; 83540; 83550; 83605; 83735; 83880; 84300; 84484; 85025; 86850; 86900; 86901; 88305; 93005; 93306; 96365; 96366; 96376; G0378; J2704; J2916; J3490; J7050; P9016; Q9967; U0003; U0005

== ENCOUNTER 2021-10-15 10:39 | Outpatient (CLI) | payer MEDICARE | END 2021-10-15 10:40 | disposition home or self-care (01) | LOC: RAD 10:39 | PROVIDERS: ATTEND Physician Assistant Medical | DX: K26.9 Duodenal ulcer, unspecified as acute or chronic, without hemorrhage or perforation (principal); K44.9 Diaphragmatic hernia without obstruction or gangrene; D62 Acute posthemorrhagic anemia; K20.90 Esophagitis, unspecified without bleeding; K25.7 Chronic gastric ulcer without hemorrhage or perforation; R19.2 Visible peristalsis | CPT/HCPCS: 74220 ==